=== PATIENT | female | born 1995 | race African-American/Black ===

== ENCOUNTER 2017-02-22 03:55 | Emergency (ER) | payer MEDICAID ==
[~2017-02-22] VITALS: Ht 167.6 cm; Wt 90.0 kg
[2017-02-22] MEDS ORDERED: SODIUM CHLORIDE 0.9% 1,000 ML IV ONE (05:03)
[2017-02-22] MEDS ORDERED: MORPHINE SULFATE 4 MG/ML CPJ (NOT FOR IM USE) IV ONE (05:15)
[2017-02-22] MEDS ORDERED: ONDANSETRON HCL 4MG/2ML VIAL IV ONE (05:15)
[2017-02-22 05:31] LABS: BASOPHILS % 0.7 % (0.0-2.0); EOSINOPHILS % 0.1 % (0.0-5.0); HEMATOCRIT. 31.2 % (36.0-48.0); HEMOGLOBIN. 10.4 g/dL (12.0-16.0); MEAN CORPUSCULAR HEMOGLOBIN 27.3 pg (28.0-32.0); MEAN CORPUSCULAR VOLUME 81.7 fL (81.0-99.0); MEAN PLATELET VOLUME 7.9 fl (7.4-10.4); MONOCYTES % 6.4 % (2.0-8.0); NEUTROPHILS % 82.8 % (40.0-76.0); PLATELET 233 x1000/uL (130-400); RED BLOOD CELL COUNT 3.82 mill/uL (4.2-5.4); RED CELL DISTRIBUTION WIDTH 12.7 % (11.6-14.6)
[2017-02-22 05:54] LABS: CARBON DIOXIDE 23 mEq/L (21-32); CHLORIDE 109 mEq/L (98-107)
[2017-02-22] MEDS ORDERED: IBUPROFEN 600MG TABLET PO ONE (06:30)
[2017-02-22 06:59] LABS: B-HCG QUANTITATIVE 50193 mIU/mL (<3)
[2017-02-22 08:36] VITALS: BP 117/66
== END 2017-02-22 08:37 | disposition home or self-care (01) ==
LOC: ER 04:06
DX: O03.9 Complete or unspecified spontaneous abortion without complication (principal)
CPT/HCPCS: 36415; 76801; 76817; 80048; 84702; 85025; 86850; 86900; 86901; 88305; 96361; 96374; 96375; 99285; J2270; J2405; J7030; Z7610